=== PATIENT | male | born 1950 | race Caucasian/White ===

== ENCOUNTER 2022-12-03 22:07 | Inpatient (IN) | payer MEDICARE, BC ==
[2022-12-03] MEDS ORDERED: Heparin 25,000 units/D5W 500 ML ONE (22:16)
[2022-12-03 22:46] LABS: #Basophils 0.1 thou/uL (0.0-0.2); #Eosinphils 0.2 thou/uL (0.0-0.7); #Lymphocytes 1.5 thou/uL (1.20-3.40); #Monocytes 0.6 thou/uL (0.11-0.59); #Neutrophils 5.2 thou/uL (1.40-6.50); %Basophils 0.7 % (0.0-1.0); %Eosinophils 3.1 % (0.0-10.0); %Lymphocytes 19.8 % (21.0-51.0); %Monocytes 7.4 % (0.0-10.0); Hemoglobin 13.7 g/dL (14.0-18.0); Mean Corpuscular HGB CONC 34.5 g/dL (32.0-36.0); Mean Corpuscular Hemoglobin 35.3 pg (27.0-31.0); Mean Platelet Volume 7.7 fL (7.4-10.4); Platelet Count 234 10x3/uL (130-400); RBC Distribution Width 11.1 % (11.5-14.5); Red Blood Cell (RBC) Count 3.89 mill/uL (4.70-6.10); White Blood Cell (WBC) Count 7.6 10x3/uL (4.8-10.8)
[2022-12-03 23:09] LABS: ALT (SGPT) 16 U/L (8-55); AST (SGOT) 23 U/L (5-34); Albumin 3.9 g/dL (3.4-4.8); Alkaline Phosphatase 77 U/L (40-110); Anion Gap 12 mmol/L (10-20); BUN (Urea Nitrogen) 12 mg/dL (8.4-25.7); Bilirubin, Total 0.2 mg/dL (0.2-1.2); Calc. Creatinine Clearance 0 mL/min (70-130); Calcium 8.9 mg/dL (7.8-10.44); Carbon Dioxide 25 mmol/L (23-31); Chloride 104 mmol/L (98-107); Estimated GFR 96; Globulin 2.3 g/dL (2.4-3.5); Glucose 110 mg/dL (83-110); Potassium 4.5 mmol/L (3.5-5.1); Protein, Total 6.2 g/dL (5.8-8.1); Sodium 136 mmol/L (136-145)
[2022-12-03 23:35] LABS: CKMB 12.3 ng/mL (0-6.6)
[2022-12-03] MEDS ORDERED: Dextrose 5%-Lactated Ringers 1,000 ML IV SCH (23:45)
[2022-12-03] MEDS ORDERED: Senokot S 8.6-50 MG TAB PO PRN (23:54)
[2022-12-03] MEDS ORDERED: Ondansetron ODT 4 MG TAB PO PRN (23:54)
[2022-12-04 00:16] LABS: Hemoglobin 14.2 g/dL (14.0-18.0); Platelet Count 234 10x3/uL (130-400)
[2022-12-04 02:24] LABS: Troponin I 4.658 ng/mL (< 0.028)
[2022-12-04] MEDS ORDERED: Acetaminophen 325 MG TAB ONE ×2 (02:42→08:15)
[2022-12-04] MEDS: Acetaminophen 325 MG TAB PO PRN ×2 (02:44→08:20)
[2022-12-04 05:56] LABS: Cardiac Risk 2.8 (Less than 4.5)
[2022-12-04 06:12] LABS: Troponin I 5.915 ng/mL (< 0.028)
[2022-12-04] MEDS: Aspirin 81 mg Enteric Coated Tablet PO SCH (08:12)
[2022-12-04] MEDS ORDERED: Famotidine 20 MG TAB ONE (08:15)
[2022-12-04] MEDS: Famotidine 20 MG TAB PO SCH ×2 (08:20→21:30)
[2022-12-04 21:15] VITALS: BMI 24.1
[2022-12-05] MEDS: Heparin 25,000 units/D5W 500 ML IVPB SCH (01:57)
[2022-12-05 04:18] LABS: #Basophils 0.1 thou/uL (0.0-0.2); #Eosinphils 0.2 thou/uL (0.0-0.7); #Lymphocytes 1.7 thou/uL (1.20-3.40); #Monocytes 0.8 thou/uL (0.11-0.59); #Neutrophils 4.4 thou/uL (1.40-6.50); %Basophils 0.7 % (0.0-1.0); %Eosinophils 3.4 % (0.0-10.0); %Monocytes 10.5 % (0.0-10.0); %Neutrophils 61.5 % (42.0-75.0); Hemoglobin 13.9 g/dL (14.0-18.0); Mean Corpuscular HGB CONC 34.2 g/dL (32.0-36.0); Mean Corpuscular Hemoglobin 35.2 pg (27.0-31.0); Mean Platelet Volume 7.7 fL (7.4-10.4); Platelet Count 207 10x3/uL (130-400); RBC Distribution Width 11.1 % (11.5-14.5); Red Blood Cell (RBC) Count 3.96 mill/uL (4.70-6.10); White Blood Cell (WBC) Count 7.2 10x3/uL (4.8-10.8)
[2022-12-05 04:37] LABS: Anion Gap 12 mmol/L (10-20); BUN (Urea Nitrogen) 4 mg/dL (8.4-25.7); Calc. Creatinine Clearance 114 mL/min (70-130); Calcium 8.8 mg/dL (7.8-10.44); Carbon Dioxide 23 mmol/L (23-31); Chloride 106 mmol/L (98-107); Estimated GFR 99; Glucose 102 mg/dL (83-110); Potassium 3.8 mmol/L (3.5-5.1); Sodium 137 mmol/L (136-145)
[2022-12-05] MEDS ORDERED: Iopamidol 370 76% 100 ML VIAL ONE (07:45)
[2022-12-05] MEDS: Aspirin 81 mg Enteric Coated Tablet PO SCH (10:31)
[2022-12-05] MEDS: Famotidine 20 MG TAB PO SCH ×2 (10:32→20:58)
[2022-12-05] MEDS ORDERED: Lidocaine 1% (PF) 30 ML VIAL ONE (12:08)
[2022-12-05] MEDS ORDERED: Adenosine 6 MG/2 ML VIAL ONE (12:08)
[2022-12-05] MEDS ORDERED: Nitroglycerin 100MG/250ML BOT 0 ML ONE (12:08)
[2022-12-05] MEDS ORDERED: Verapamil 5 MG/2 ML VIAL ONE (12:08)
[2022-12-05] MEDS ORDERED: Heparin 10,000 UNITS/ 10 ML VIAL ONE (12:08)
[2022-12-05] MEDS ORDERED: Midazolam HCl 2 mg/2 ml Vial ONE (12:54)
[2022-12-05] MEDS ORDERED: FENTANYL 50 MCG/ML 1 ML VIAL ONE (12:55)
[2022-12-05] MEDS: Lisinopril 10 MG TAB PO SCH ×2 (13:12→14:25)
[2022-12-05] MEDS ORDERED: hydrALAZINE 20 MG/ML VIAL ONE (13:30)
[2022-12-05] MEDS: Nitroglycerin 0.4 MG TAB (25 Tab Bottle) SL PRN ×2 (16:15→16:21)
[2022-12-05] MEDS: Nitroglycerin 2% Ointment 1 INCH/1 GM Packet TOP SCH ×2 (17:00→23:31)
[2022-12-05] MEDS: Heparin 10,000 UNITS/ 10 ML VIAL SLOW IVP SCH (17:57)
[2022-12-05] MEDS: Metoprolol Tartrate 25 MG TAB PO SCH (20:57)
[2022-12-05] MEDS: Atorvastatin Calcium 40 MG TAB PO SCH (20:57)
[2022-12-06] MEDS: Acetaminophen 325 MG TAB PO PRN ×2 (00:49→23:20)
[2022-12-06] MEDS: Heparin 10,000 UNITS/ 10 ML VIAL SLOW IVP SCH (00:51)
[2022-12-06] MEDS: Nitroglycerin 2% Ointment 1 INCH/1 GM Packet TOP SCH ×4 (06:53→23:21)
[2022-12-06] MEDS: Heparin 25,000 units/D5W 500 ML IVPB SCH (07:07)
[2022-12-06] MEDS ORDERED: Diazepam 5 MG TAB PO PRN (07:30)
[2022-12-06] MEDS: Aspirin 81 mg Enteric Coated Tablet PO SCH (09:46)
[2022-12-06] MEDS: Famotidine 20 MG TAB PO SCH ×2 (09:46→21:33)
[2022-12-06] MEDS: Metoprolol Tartrate 25 MG TAB PO SCH ×2 (09:46→21:34)
[2022-12-06] MEDS: Lisinopril 20 MG TAB PO SCH (09:47)
[2022-12-06] MEDS: Atorvastatin Calcium 40 MG TAB PO SCH (21:33)
[2022-12-07] MEDS ORDERED: Communication Order-Pharmacy FS PRN
[2022-12-07] MEDS: Lisinopril 20 MG TAB PO SCH (05:05)
[2022-12-07] MEDS: Metoprolol Tartrate 25 MG TAB PO SCH (05:05)
[2022-12-07 05:07] LABS: #Eosinphils 0.2 thou/uL (0.0-0.7); #Lymphocytes 1.4 thou/uL (1.20-3.40); #Monocytes 1.4 thou/uL (0.11-0.59); #Neutrophils 8.6 thou/uL (1.40-6.50); %Basophils 0.4 % (0.0-1.0); %Eosinophils 2.1 % (0.0-10.0); %Lymphocytes 11.9 % (21.0-51.0); %Neutrophils 73.7 % (42.0-75.0); Hemoglobin 13.2 g/dL (14.0-18.0); Mean Corpuscular HGB CONC 34.8 g/dL (32.0-36.0); Mean Corpuscular Hemoglobin 35.3 pg (27.0-31.0); Mean Platelet Volume 7.9 fL (7.4-10.4); Platelet Count 204 10x3/uL (130-400); Red Blood Cell (RBC) Count 3.75 mill/uL (4.70-6.10); White Blood Cell (WBC) Count 11.6 10x3/uL (4.8-10.8)
[2022-12-07 05:24] LABS: Anion Gap 9 mmol/L (10-20); BUN (Urea Nitrogen) 11 mg/dL (8.4-25.7); Calc. Creatinine Clearance 107 mL/min (70-130); Calcium 8.9 mg/dL (7.8-10.44); Carbon Dioxide 25 mmol/L (23-31); Chloride 102 mmol/L (98-107); Estimated GFR 97; Glucose 102 mg/dL (83-110); Sodium 132 mmol/L (136-145)
[2022-12-07] MEDS: Nitroglycerin 2% Ointment 1 INCH/1 GM Packet TOP SCH (05:25)
[2022-12-07] MEDS ORDERED: Dexamethasone 4 mg/ml Vial ONE (08:45)
[2022-12-07] MEDS ORDERED: Albumin 5% 500 ML ONE (08:45)
[2022-12-07] MEDS ORDERED: Bupivacaine HCl 0.5%/Epinephrine 1:200,000/PF 30 ml Vial ONE (08:45)
[2022-12-07] MEDS ORDERED: Midazolam HCl 5 mg/5 ml Vial ONE (09:26)
[2022-12-07] MEDS ORDERED: Fentanyl 250 MCG/5 ML VIAL ONE (09:26)
[2022-12-07] MEDS ORDERED: Dexmedetomidine 200 MCG/2 ML VIAL ONE (09:26)
[2022-12-07] MEDS ORDERED: Lidocaine 1% PF 5 ML VIAL ONE ×3 (09:45→10:37)
[2022-12-07] MEDS ORDERED: CEFAZOLIN 2 GM in Sodium Chloride 0.9% 100 ML IVPB SCH (10:00)
[2022-12-07] MEDS ORDERED: Sodium Chloride 0.9% 100 ML ONE (10:24)
[2022-12-07] MEDS ORDERED: CEFAZOLIN 2 GM VIAL ONE (10:24)
[2022-12-07] MEDS ORDERED: Norepinephrine 4 MG/4 ML VIAL ONE (10:37)
[2022-12-07] MEDS ORDERED: Aminocaproic Acid 5 GM/20 ML VIAL ONE (10:37)
[2022-12-07] MEDS ORDERED: Mannitol 12.5 GM/50 ML ONE (10:37)
[2022-12-07] MEDS ORDERED: Ondansetron PF 4 MG/2 ML Vial ONE (10:37)
[2022-12-07] MEDS ORDERED: Papaverine 60 MG/2 ML VIAL ONE (10:37)
[2022-12-07] MEDS ORDERED: Dexamethasone 20 MG/5 ML VIAL ONE (10:37)
[2022-12-07] MEDS ORDERED: Protamine Sulfate 250 MG/25 ML VIAL ONE (10:37)
[2022-12-07] MEDS ORDERED: Vancomycin 1 GM VIAL ONE ×2 (10:37→13:07)
[2022-12-07] MEDS ORDERED: Calcium Chloride 1 GM/10 ML Abboject SYRINGE ONE (10:37)
[2022-12-07] MEDS ORDERED: Thrombin 5000 UNITS/5 ML VIAL ONE (10:37)
[2022-12-07] MEDS ORDERED: Cardioplegic Soln 1,000 ML BAG ONE (10:37)
[2022-12-07] MEDS ORDERED: Nitroglycerin 50 MG/250 ML BOT ONE (10:37)
[2022-12-07] MEDS ORDERED: Heparin 5,000 UNITS/ML VIAL ONE (10:37)
[2022-12-07] MEDS ORDERED: PROPOFOL 200 MG/20 ML VIAL ONE (10:37)
[2022-12-07] MEDS ORDERED: Lidocaine 2% PF 100 mg/5 ml Syringe ONE (10:37)
[2022-12-07] MEDS ORDERED: Vecuronium 10 MG VIAL ONE (10:37)
[2022-12-07] MEDS ORDERED: Potassium Chloride 60 MEQ/30 ML VIAL ONE (10:37)
[2022-12-07] MEDS ORDERED: Sodium Bicarb 50 MEQ/50 ML VIAL ONE (10:37)
[2022-12-07] MEDS ORDERED: Heparin 30,000 units/30 ml VIAL ONE (10:37)
[2022-12-07] MEDS ORDERED: Magnesium 2 GM/50 ML(in water) 2 GM in Premix Bag 1 BAG IVPB SCH (13:30)
[2022-12-07] MEDS ORDERED: Insulin Regular 300 UNITS/3 ML VIAL ONE (14:21)
[2022-12-07] MEDS: Insulin Regular 300 UNITS/3 ML VIAL SC PRN ×2 (14:25→20:12)
[2022-12-07] MEDS ORDERED: NOREPINEPHRINE 8 MG/250 ML-D5W 250 ML ONE (14:28)
[2022-12-07 15:06] LABS: #Eosinphils 0.3 thou/uL (0.0-0.7); #Lymphocytes 1.3 thou/uL (1.20-3.40); #Neutrophils 17.1 thou/uL (1.40-6.50); %Basophils 0.2 % (0.0-1.0); %Eosinophils 1.3 % (0.0-10.0); %Lymphocytes 6.8 % (21.0-51.0); %Monocytes 5.2 % (0.0-10.0); %Neutrophils 86.7 % (42.0-75.0); Hemoglobin 12.3 g/dL (14.0-18.0); Mean Corpuscular HGB CONC 34.2 g/dL (32.0-36.0); Mean Corpuscular Hemoglobin 34.9 pg (27.0-31.0); Mean Platelet Volume 8.2 fL (7.4-10.4); Platelet Count 184 10x3/uL (130-400); RBC Distribution Width 11.2 % (11.5-14.5); Red Blood Cell (RBC) Count 3.53 mill/uL (4.70-6.10); White Blood Cell (WBC) Count 19.7 10x3/uL (4.8-10.8)
[2022-12-07] MEDS ORDERED: Hetastarch 6% 500 ML 500 ML IVPB PRN (15:09)
[2022-12-07] MEDS ORDERED: NOREPINEPHRINE 8 MG/250 ML-D5W 250 ML IVPB PRN (15:09)
[2022-12-07] MEDS ORDERED: Bisacodyl 10 MG SUPP PR PRN (15:09)
[2022-12-07] MEDS ORDERED: Bisacodyl 5 MG TAB PO PRN (15:09)
[2022-12-07] MEDS ORDERED: Ondansetron PF 4 MG/2 ML Vial IVP PRN (15:09)
[2022-12-07] MEDS ORDERED: Potassium Chloride 20 MEQ/100 ML PREMIX BAG IVPB PRN (15:09)
[2022-12-07] MEDS ORDERED: traMADol HCl 50 MG TAB PO PRN (15:09)
[2022-12-07] MEDS ORDERED: Nitroglycerin 50 MG/250 ML BOT 250 ML IVPB PRN (15:09)
[2022-12-07] MEDS ORDERED: hydrALAZINE 20 MG/ML VIAL SLOW IVP PRN (15:09)
[2022-12-07] MEDS ORDERED: Acetaminophen 325 MG TAB PO PRN (15:09)
[2022-12-07] MEDS ORDERED: Mag-Al 1200 mg/1200 mg/30 ML UDCUP PO PRN (15:09)
[2022-12-07] MEDS ORDERED: Ipratropium/Albuterol 3 ML NEB NEB PRN (15:09)
[2022-12-07] MEDS ORDERED: Guaifenesin DM 100-10/5 ML UDCUP PO PRN (15:09)
[2022-12-07] MEDS ORDERED: Fentanyl 100 MCG/2 ML VIAL SLOW IVP PRN (15:09)
[2022-12-07 15:14] LABS: Anion Gap 11 mmol/L (10-20); BUN (Urea Nitrogen) 10 mg/dL (8.4-25.7); Calc. Creatinine Clearance 110 mL/min (70-130); Calcium 7.7 mg/dL (7.8-10.44); Carbon Dioxide 20 mmol/L (23-31); Chloride 108 mmol/L (98-107); Estimated GFR 98; Glucose 146 mg/dL (83-110); Potassium 4.2 mmol/L (3.5-5.1); Sodium 135 mmol/L (136-145)
[2022-12-07 15:15] LABS: INR-International Normal Ratio 1.2; Prothrombin Time 15.4 sec (12.0-14.7)
[2022-12-07] MEDS ORDERED: D5 1/2 NS w/20 mEq KCL 1,000 ML IV SCH (15:15)
[2022-12-07 15:16] LABS: PTT 34.5 sec (22.9-36.1)
[2022-12-07] MEDS ORDERED: Dextrose 5% in Water 1,000 ML IV PRN (15:30)
[2022-12-07] MEDS ORDERED: HUMULIN R 100 UNITS in Sodium Chloride 0.9% 100 ML IVPB SCH (15:30)
[2022-12-07] MEDS ORDERED: Dextrose 50% Abboject 50 ML SYRINGE SLOW IVP PRN (15:30)
[2022-12-07] MEDS ORDERED: Morphine 4 MG/ML VIAL SLOW IVP PRN (15:37)
[2022-12-07] MEDS: Fentanyl 100 MCG/2 ML VIAL SLOW IVP PRN ×3 (15:51→22:10)
[2022-12-07] MEDS: CEFAZOLIN 2 GM in Sodium Chloride 0.9% 100 ML IVPB SCH (18:10)
[2022-12-07] MEDS: Ketorolac Tromethamine 30 MG/ML VIAL IVP SCH ×2 (18:10→23:27)
[2022-12-07] MEDS: Atorvastatin Calcium 40 MG TAB PO SCH (19:34)
[2022-12-07] MEDS ORDERED: Famotidine/PF 20 mg/2ml Vial SLOW IVP SCH (21:00)
[2022-12-07 21:17] LABS: Hemoglobin 12.2 g/dL (14.0-18.0)
[2022-12-07 21:28] LABS: Potassium 4.4 mmol/L (3.5-5.1)
[2022-12-08] MEDS: Fentanyl 100 MCG/2 ML VIAL SLOW IVP PRN ×2 (01:58→05:14)
[2022-12-08] MEDS: CEFAZOLIN 2 GM in Sodium Chloride 0.9% 100 ML IVPB SCH ×2 (02:34→11:29)
[2022-12-08 04:07] LABS: #Lymphocytes 0.9 thou/uL (1.20-3.40); #Monocytes 1.4 thou/uL (0.11-0.59); #Neutrophils 10.1 thou/uL (1.40-6.50); %Basophils 0.1 % (0.0-1.0); %Eosinophils 0.1 % (0.0-10.0); %Lymphocytes 7.2 % (21.0-51.0); %Monocytes 10.9 % (0.0-10.0); %Neutrophils 81.7 % (42.0-75.0); Hemoglobin 11.6 g/dL (14.0-18.0); Mean Corpuscular HGB CONC 33.8 g/dL (32.0-36.0); Mean Corpuscular Hemoglobin 34.8 pg (27.0-31.0); Mean Platelet Volume 8.2 fL (7.4-10.4); Platelet Count 163 10x3/uL (130-400); RBC Distribution Width 11.1 % (11.5-14.5); Red Blood Cell (RBC) Count 3.33 mill/uL (4.70-6.10); White Blood Cell (WBC) Count 12.4 10x3/uL (4.8-10.8)
[2022-12-08 04:43] LABS: Anion Gap 7 mmol/L (10-20); BUN (Urea Nitrogen) 10 mg/dL (8.4-25.7); Calc. Creatinine Clearance 110 mL/min (70-130); Calcium 7.8 mg/dL (7.8-10.44); Carbon Dioxide 24 mmol/L (23-31); Chloride 108 mmol/L (98-107); Estimated GFR 98; Glucose 113 mg/dL (83-110); Potassium 4.3 mmol/L (3.5-5.1); Sodium 135 mmol/L (136-145)
[2022-12-08] MEDS: Ketorolac Tromethamine 30 MG/ML VIAL IVP SCH ×4 (05:14→23:46)
[2022-12-08] MEDS: Aspirin Chewable 81 MG TAB PO SCH (09:14)
[2022-12-08] MEDS: Magnesium 2 GM/50 ML(in water) 2 GM in Premix Bag 1 BAG IVPB SCH (09:14)
[2022-12-08] MEDS ORDERED: Insulin Glargine 30 UNITS/0.3 ML VIAL SC PRN (15:20)
[2022-12-08] MEDS: Atorvastatin Calcium 40 MG TAB PO SCH (20:13)
[2022-12-09] MEDS: Amiodarone 450 MG, Admixture Fee 1 EACH in Dextrose 5% in Water 250 ML IVPB SCH (05:04)
[2022-12-09] MEDS: Ketorolac Tromethamine 30 MG/ML VIAL IVP SCH ×4 (05:09→23:40)
[2022-12-09] MEDS: traMADol HCl 50 MG TAB PO PRN (05:15)
[2022-12-09] MEDS: Aspirin Chewable 81 MG TAB PO SCH (08:22)
[2022-12-09] MEDS: Magnesium 2 GM/50 ML(in water) 2 GM in Premix Bag 1 BAG IVPB SCH (08:28)
[2022-12-09] MEDS ORDERED: Milk Of Magnesia 30 ML UDCUP PO PRN (09:35)
[2022-12-09] MEDS ORDERED: Zolpidem Tartrate 5 MG TAB PO PRN (09:35)
[2022-12-09] MEDS ORDERED: diphenhydrAMINE 25 MG CAP PO PRN (09:35)
[2022-12-09] MEDS ORDERED: Nitroglycerin 0.4 MG TAB (25 Tab Bottle) SL PRN (09:35)
[2022-12-09] MEDS ORDERED: Mineral Oil ENEMA PR PRN (09:35)
[2022-12-09] MEDS ORDERED: Bisacodyl 5 MG TAB PO PRN (09:35)
[2022-12-09] MEDS ORDERED: Bisacodyl 10 MG SUPP PR PRN (09:35)
[2022-12-09] MEDS ORDERED: Mag-Al 1200 mg/1200 mg/30 ML UDCUP PO PRN (09:35)
[2022-12-09] MEDS ORDERED: Digoxin 0.5 MG/2 ML AMP ONE (09:59)
[2022-12-09 10:24] LABS: #Eosinphils 0.1 thou/uL (0.0-0.7); #Lymphocytes 1.7 thou/uL (1.20-3.40); #Monocytes 1.9 thou/uL (0.11-0.59); #Neutrophils 8.9 thou/uL (1.40-6.50); %Basophils 0.2 % (0.0-1.0); %Eosinophils 0.8 % (0.0-10.0); %Lymphocytes 13.1 % (21.0-51.0); %Monocytes 14.9 % (0.0-10.0); %Neutrophils 70.8 % (42.0-75.0); Mean Corpuscular HGB CONC 33.6 g/dL (32.0-36.0); Mean Corpuscular Hemoglobin 35.2 pg (27.0-31.0); Mean Platelet Volume 8.1 fL (7.4-10.4); Platelet Count 214 10x3/uL (130-400); RBC Distribution Width 11.3 % (11.5-14.5); White Blood Cell (WBC) Count 12.5 10x3/uL (4.8-10.8)
[2022-12-09 10:34] LABS: Anion Gap 10 mmol/L (10-20); BUN (Urea Nitrogen) 19 mg/dL (8.4-25.7); Calc. Creatinine Clearance 93 mL/min (70-130); Calcium 8.4 mg/dL (7.8-10.44); Carbon Dioxide 21 mmol/L (23-31); Chloride 103 mmol/L (98-107); Estimated GFR 92; Glucose 127 mg/dL (83-110); Potassium 4.4 mmol/L (3.5-5.1); Sodium 130 mmol/L (136-145)
[2022-12-09] MEDS ORDERED: Digoxin 0.5 MG/2 ML AMP SLOW IVP SCH (10:45)
[2022-12-09] MEDS: Clopidogrel Bisulfate 75 MG TAB PO SCH (13:36)
[2022-12-09] MEDS: Atorvastatin Calcium 40 MG TAB PO SCH (20:20)
[2022-12-10] MEDS ORDERED: Tamsulosin HCl 0.4 MG CAP PO SCH (02:15)
[2022-12-10] MEDS: Amiodarone 450 MG, Admixture Fee 1 EACH in Dextrose 5% in Water 250 ML IVPB SCH (02:19)
[2022-12-10] MEDS: Ketorolac Tromethamine 30 MG/ML VIAL IVP SCH ×3 (06:15→16:51)
[2022-12-10 06:38] LABS: Hemoglobin 11.7 g/dL (14.0-18.0); Mean Corpuscular HGB CONC 35.4 g/dL (32.0-36.0); Mean Corpuscular Hemoglobin 36.2 pg (27.0-31.0); Mean Platelet Volume 7.9 fL (7.4-10.4); Platelet Count 187 10x3/uL (130-400); RBC Distribution Width 11.1 % (11.5-14.5); Red Blood Cell (RBC) Count 3.25 mill/uL (4.70-6.10)
[2022-12-10 06:55] LABS: Band 4 % (5-11); Eosinophils 2 % (0-10); Lymphocytes 18 % (21-51); MDiff Complete? YES; Monocytes 14 % (0-10); Neutrophil 62 % (42-75)
[2022-12-10 06:58] LABS: Anion Gap 10 mmol/L (10-20); BUN (Urea Nitrogen) 14 mg/dL (8.4-25.7); Calc. Creatinine Clearance 107 mL/min (70-130); Calcium 8.4 mg/dL (7.8-10.44); Carbon Dioxide 24 mmol/L (23-31); Chloride 101 mmol/L (98-107); Estimated GFR 96; Glucose 105 mg/dL (83-110); Potassium 4.2 mmol/L (3.5-5.1); Sodium 131 mmol/L (136-145)
[2022-12-10] MEDS: Guaifenesin DM 100-10/5 ML UDCUP PO PRN ×2 (08:11→20:05)
[2022-12-10] MEDS: Aspirin Chewable 81 MG TAB PO SCH (08:11)
[2022-12-10] MEDS: Clopidogrel Bisulfate 75 MG TAB PO SCH (08:11)
[2022-12-10] MEDS ORDERED: Furosemide 40 MG TAB PO SCH (08:45)
[2022-12-10] MEDS: Ascorbic Acid 500 mg Chewable Tablet PO SCH (11:10)
[2022-12-10] MEDS: Metoprolol Tartrate 25 MG TAB PO SCH ×2 (11:10→20:05)
[2022-12-10] MEDS: Vitamin E 400 UNITS CAP PO SCH (11:10)
[2022-12-10] MEDS ORDERED: Furosemide 40 MG/4 ML VIAL SLOW IVP SCH (15:15)
[2022-12-10] MEDS: Amiodarone 200 MG TAB PO SCH (20:05)
[2022-12-10] MEDS: Atorvastatin Calcium 40 MG TAB PO SCH (20:05)
[2022-12-10] MEDS: Tamsulosin HCl 0.4 MG CAP PO SCH (20:06)
[2022-12-11] MEDS: Guaifenesin DM 100-10/5 ML UDCUP PO PRN ×3 (00:01→20:22)
[2022-12-11] MEDS: traMADol HCl 50 MG TAB PO PRN (00:04)
[2022-12-11 04:42] LABS: #Eosinphils 0.2 thou/uL (0.0-0.7); #Lymphocytes 1.3 thou/uL (1.20-3.40); #Monocytes 1.2 thou/uL (0.11-0.59); #Neutrophils 5.6 thou/uL (1.40-6.50); %Basophils 0.1 % (0.0-1.0); %Lymphocytes 15.1 % (21.0-51.0); %Monocytes 14.2 % (0.0-10.0); %Neutrophils 67.6 % (42.0-75.0); Hemoglobin 11.2 g/dL (14.0-18.0); Mean Corpuscular HGB CONC 35.2 g/dL (32.0-36.0); Mean Corpuscular Hemoglobin 35.5 pg (27.0-31.0); Platelet Count 215 10x3/uL (130-400); RBC Distribution Width 11.1 % (11.5-14.5); Red Blood Cell (RBC) Count 3.15 mill/uL (4.70-6.10); White Blood Cell (WBC) Count 8.3 10x3/uL (4.8-10.8)
[2022-12-11 04:51] LABS: Anion Gap 12 mmol/L (10-20); BUN (Urea Nitrogen) 14 mg/dL (8.4-25.7); Calc. Creatinine Clearance 114 mL/min (70-130); Calcium 8.4 mg/dL (7.8-10.44); Carbon Dioxide 22 mmol/L (23-31); Chloride 100 mmol/L (98-107); Estimated GFR 98; Glucose 110 mg/dL (83-110); Potassium 4.1 mmol/L (3.5-5.1); Sodium 130 mmol/L (136-145)
[2022-12-11] MEDS: Aspirin Chewable 81 MG TAB PO SCH (08:37)
[2022-12-11] MEDS: Metoprolol Tartrate 25 MG TAB PO SCH ×2 (08:37→20:20)
[2022-12-11] MEDS: Amiodarone 200 MG TAB PO SCH ×2 (08:37→20:20)
[2022-12-11] MEDS: Ascorbic Acid 500 mg Chewable Tablet PO SCH (08:37)
[2022-12-11] MEDS: Furosemide 40 MG TAB PO SCH (08:38)
[2022-12-11] MEDS: Clopidogrel Bisulfate 75 MG TAB PO SCH (08:38)
[2022-12-11] MEDS: Vitamin E 400 UNITS CAP PO SCH (12:00)
[2022-12-11] MEDS: Atorvastatin Calcium 40 MG TAB PO SCH (20:20)
[2022-12-11] MEDS: Tamsulosin HCl 0.4 MG CAP PO SCH (20:21)
[2022-12-12] MEDS: Guaifenesin DM 100-10/5 ML UDCUP PO PRN (00:38)
[2022-12-12] MEDS: traMADol HCl 50 MG TAB PO PRN (00:38)
[2022-12-12 05:01] LABS: Anion Gap 12 mmol/L (10-20); BUN (Urea Nitrogen) 11 mg/dL (8.4-25.7); Calc. Creatinine Clearance 103 mL/min (70-130); Calcium 8.7 mg/dL (7.8-10.44); Carbon Dioxide 23 mmol/L (23-31); Chloride 100 mmol/L (98-107); Estimated GFR 96; Glucose 111 mg/dL (83-110); Potassium 4.3 mmol/L (3.5-5.1); Sodium 131 mmol/L (136-145)
[2022-12-12 05:22] LABS: Band 1 % (5-11); Eosinophils 3 % (0-10); Hemoglobin 11.2 g/dL (14.0-18.0); Lymphocytes 17 % (21-51); MDiff Complete? YES; Mean Corpuscular HGB CONC 35.1 g/dL (32.0-36.0); Mean Corpuscular Hemoglobin 35.4 pg (27.0-31.0); Mean Platelet Volume 7.8 fL (7.4-10.4); Monocytes 19 % (0-10); Neutrophil 60 % (42-75); Platelet Count 256 10x3/uL (130-400); Red Blood Cell (RBC) Count 3.18 mill/uL (4.70-6.10); White Blood Cell (WBC) Count 8.1 10x3/uL (4.8-10.8)
[2022-12-12] MEDS: Ascorbic Acid 500 mg Chewable Tablet PO SCH (08:39)
[2022-12-12] MEDS: Metoprolol Tartrate 25 MG TAB PO SCH (08:39)
[2022-12-12] MEDS: Aspirin Chewable 81 MG TAB PO SCH (08:40)
[2022-12-12] MEDS: Amiodarone 200 MG TAB PO SCH (08:40)
[2022-12-12] MEDS: Furosemide 40 MG TAB PO SCH (08:40)
[2022-12-12] MEDS: Clopidogrel Bisulfate 75 MG TAB PO SCH (08:40)
[2022-12-12] MEDS: Vitamin E 400 UNITS CAP PO SCH (08:40)
[2022-12-12] MEDS ORDERED: Sulfameth/Trimethoprim DS 800-160mg TAB PO SCH (09:00)
[2022-12-12 09:21] VITALS: BP 94/55; TEMP 97.6
[2022-12-12] MEDS ORDERED: Cephalexin 250 MG CAP PO SCH (12:00)
== END 2022-12-12 12:10 | disposition home or self-care (01) | DRG 233 ==
LOC: ERS 22:07 → ERHOLD 23:36 → 2NO 12-04 20:50 → CCU 12-07 08:03 → 2NO 12-09 18:14
PROVIDERS: ADMIT Thoracic Surgery (Cardiothoracic Vascular Surgery); ATTEND Internal Medicine
PROC: 4A023N7 Measurement of Cardiac Sampling and Pressure, Left Heart, Percutaneous Approach (ICD-10-PCS; 2022-12-05)
PROC: B2151ZZ Fluoroscopy of Left Heart using Low Osmolar Contrast (ICD-10-PCS; 2022-12-05)
PROC: B2111ZZ Fluoroscopy of Multiple Coronary Arteries using Low Osmolar Contrast (ICD-10-PCS; 2022-12-05)
PROC: 021209W Bypass Coronary Artery, Three Arteries from Aorta with Autologous Venous Tissue, Open Approach (ICD-10-PCS; principal; 2022-12-07)
PROC: 02100Z9 Bypass Coronary Artery, One Artery from Left Internal Mammary, Open Approach (ICD-10-PCS; 2022-12-07)
PROC: 06BQ4ZZ Excision of Left Saphenous Vein, Percutaneous Endoscopic Approach (ICD-10-PCS; 2022-12-07)
PROC: 5A1221Z Performance of Cardiac Output, Continuous (ICD-10-PCS; 2022-12-07)
PROC: 02L70CK Occlusion of Left Atrial Appendage with Extraluminal Device, Open Approach (ICD-10-PCS; 2022-12-07)
DX: T82.855A Stenosis of coronary artery stent, initial encounter (principal); I21.4 Non-ST elevation (NSTEMI) myocardial infarction; I25.110 Atherosclerotic heart disease of native coronary artery with unstable angina pectoris; J90 Pleural effusion, not elsewhere classified; Z20.822 Contact with and (suspected) exposure to COVID-19; I25.10 Atherosclerotic heart disease of native coronary artery without angina pectoris; I10 Essential (primary) hypertension; Y83.1 Surgical operation with implant of artificial internal device as the cause of abnormal reaction of the patient, or of later complication, without mention of misadventure at the time of the procedure; E78.5 Hyperlipidemia, unspecified; R05.9 Cough, unspecified; I48.91 Unspecified atrial fibrillation; Z78.1 Physical restraint status; Z95.5 Presence of coronary angioplasty implant and graft; Z79.899 Other long term (current) drug therapy; Z79.82 Long term (current) use of aspirin
CPT/HCPCS: 36415; 36416; 36430; 71045; 80048; 80053; 80061; 82553; 83735; 83880; 84443; 84484; 85025; 85347; 85610; 85730; 86850; 86900; 86901; 87811; 93005; 93010; 93458; 93798; 94640; 96374; C1751; C1769; J0153; J0282; J0360; J1100; J1160; J1642; J1644; J1815; J1885; J1940; J2001; J2150; J2250; J2405; J2440; J2704; J2720; J3010; J3370; J3475; J3480; J3490; J7070; J7620; P9045; Q9967; S0017; S0028; U0003; U0005

== ENCOUNTER 2022-12-30 14:50 | Outpatient (CLI) | payer MEDICARE, BC ==
[2022-12-30 16:35] LABS: #Basophils 0.1 thou/uL (0.0-0.2); #Eosinphils 0.8 thou/uL (0.0-0.7); #Lymphocytes 1.3 thou/uL (1.20-3.40); #Monocytes 0.7 thou/uL (0.11-0.59); #Neutrophils 4.8 thou/uL (1.40-6.50); %Basophils 1.1 % (0.0-1.0); %Eosinophils 9.8 % (0.0-10.0); %Lymphocytes 17.1 % (21.0-51.0); %Monocytes 9.6 % (0.0-10.0); %Neutrophils 62.4 % (42.0-75.0); Hemoglobin 13.4 g/dL (14.0-18.0); Mean Corpuscular HGB CONC 34.2 g/dL (32.0-36.0); Mean Corpuscular Hemoglobin 35.2 pg (27.0-31.0); Mean Platelet Volume 7.1 fL (7.4-10.4); Platelet Count 388 10x3/uL (130-400); RBC Distribution Width 11.7 % (11.5-14.5); Red Blood Cell (RBC) Count 3.81 mill/uL (4.70-6.10); White Blood Cell (WBC) Count 7.7 10x3/uL (4.8-10.8)
[2022-12-30 17:04] LABS: ALT (SGPT) 25 U/L (8-55); AST (SGOT) 20 U/L (5-34); Albumin 3.7 g/dL (3.4-4.8); Alkaline Phosphatase 163 U/L (40-110); Anion Gap 14 mmol/L (10-20); BUN (Urea Nitrogen) 15 mg/dL (8.4-25.7); Bilirubin, Total 0.3 mg/dL (0.2-1.2); Calc. Creatinine Clearance 0 mL/min (70-130); Calcium 9.4 mg/dL (7.8-10.44); Carbon Dioxide 27 mmol/L (23-31); Chloride 100 mmol/L (98-107); Estimated GFR 81; Globulin 2.5 g/dL (2.4-3.5); Glucose 92 mg/dL (83-110); Potassium 4.6 mmol/L (3.5-5.1); Protein, Total 6.2 g/dL (5.8-8.1); Sodium 136 mmol/L (136-145)
[2022-12-30 17:23] LABS: Free T4 (Free Thyroxine) 1.27 ng/dL (0.70-1.48); Thyroid Stimulating Hormone 2.6934 uIU/mL (0.35-4.94)
== END 2022-12-30 14:51 | disposition home or self-care (01) ==
LOC: SCSRAD 14:50
PROVIDERS: ATTEND Family Medicine
DX: R05.9 Cough, unspecified (principal)
CPT/HCPCS: 36415; 71046; 80053; 83880; 84439; 84443; 85025

== ENCOUNTER 2023-01-18 14:52 | Outpatient (CLI) | payer MEDICARE, BC | END 2023-01-18 14:53 | disposition home or self-care (01) | LOC: SCSRAD 14:52 | PROVIDERS: ATTEND Thoracic Surgery (Cardiothoracic Vascular Surgery) | DX: I25.118 Atherosclerotic heart disease of native coronary artery with other forms of angina pectoris (principal) | CPT/HCPCS: 71046 ==

== ENCOUNTER 2023-02-02 14:21 | Outpatient (CLI) | payer MEDICARE, BC ==
[2023-02-02 16:52] LABS: Anion Gap 14 mmol/L (10-20); BUN (Urea Nitrogen) 13 mg/dL (8.4-25.7); Calc. Creatinine Clearance 0 mL/min (70-130); Calcium 8.8 mg/dL (7.8-10.44); Carbon Dioxide 24 mmol/L (23-31); Chloride 98 mmol/L (98-107); Estimated GFR 85; Glucose 120 mg/dL (83-110); Potassium 4.6 mmol/L (3.5-5.1); Sodium 131 mmol/L (136-145)
[2023-02-02 17:03] LABS: Band 3 % (5-11); Eosinophils 4 % (0-10); Lymphocytes 31 % (21-51); MDiff Complete? YES; Monocytes 13 % (0-10); Neutrophil 47 % (42-75); Platelet Morphology Comment Appears Adequate; RBC Morphology Normal; Reactive Lymphocytes 1 % (0-10)
[2023-02-02 17:04] LABS: Hemoglobin 13.3 g/dL (14.0-18.0); Mean Corpuscular HGB CONC 34.3 g/dL (32.0-36.0); Mean Corpuscular Hemoglobin 33.6 pg (27.0-31.0); Mean Corpuscular Volume 97.8 fl (78.0-98.0); Mean Platelet Volume 7.6 fL (7.4-10.4); Platelet Count 204 10x3/uL (130-400); RBC Distribution Width 11.7 % (11.5-14.5); Red Blood Cell (RBC) Count 3.97 mill/uL (4.70-6.10); White Blood Cell (WBC) Count 4.7 10x3/uL (4.8-10.8)
== END 2023-02-02 14:22 | disposition home or self-care (01) ==
LOC: SCSRAD 14:21
PROVIDERS: ATTEND Internal Medicine Cardiovascular Disease
DX: J90 Pleural effusion, not elsewhere classified (principal); R60.0 Localized edema; J98.11 Atelectasis
CPT/HCPCS: 36415; 71046; 80048; 83880; 85025

== ENCOUNTER 2023-03-23 10:08 | Outpatient (CLI) | payer MEDICARE, BC | END 2023-03-23 10:09 | disposition home or self-care (01) | LOC: RAD 10:08 | PROVIDERS: ATTEND Internal Medicine Critical Care Medicine | DX: R06.00 Dyspnea, unspecified (principal) | CPT/HCPCS: 71046 ==